=== PATIENT | female | born 1995 | race Caucasian/White ===

== ENCOUNTER → 2017-04-13 | Outpatient (REF) ==
[~2017-04-13] MED LIST: ADDERALL10 MG PO; BIRTH CONTROL PILL; NORCO 325 MG-51 TAB PO; PHENERGAN 25 TA25 MG PO; PREDNISONE20 MG PO; ULTRACET TABL1 UDTAB PO; ZOFRAN8 MG PO; ZOLOFT 100MG100 MG PO
== END ==
LOC: WSOH 15:07
DX: Z02.89 Encounter for other administrative examinations (principal)

== ENCOUNTER 2018-08-30 15:57 | Emergency (ER) | payer OTHER ==
[~2018-08-30] VITALS: Ht 177.8 cm; Wt 75.0 kg
[2018-08-30 16:04] VITALS: BP 131/81; TEMP 98.9
[2018-08-30 16:18] LABS: COLLECTION METHOD CLEAN CATCH
[2018-08-30 16:26] LABS: MUCOUS Present /lpf; PH 6 (5-8); SQUAMOUS EPITHELIAL 0-2 /hpf; URINE APPEARANCE Clear; URINE BACTERIA Rare /hpf; URINE BILIRUBIN Negative (NEGATIVE); URINE BLOOD 3+ (NEGATIVE); URINE COLOR Yellow; URINE GLUCOSE Negative (NEGATIVE); URINE KETONE Negative (NEGATIVE); URINE LEUKOCYTE ESTERASE 2+ (NEGATIVE); URINE NITRATE Negative (NEGATIVE); URINE PROTEIN(semi-quant) 1+ (NEGATIVE); URINE RBC >50 /hpf; URINE UROBILINOGEN Negative (NEGATIVE)
[2018-08-30] MEDS ORDERED: NORCO 325 MG-51 TAB PO (16:44)
[2018-08-30] MEDS ORDERED: CEFTIN500 MG PO (16:44)
[2018-08-30 17:37] VITALS: PULSE 60
[2018-09-02] MEDS ORDERED: MACROBID 1100 MG/CAP PO (08:07)
== END 2018-08-30 17:38 | disposition home or self-care (01) ==
LOC: COL.ER 15:57
PROVIDERS: Emergency Medicine
DX: N12 Tubulo-interstitial nephritis, not specified as acute or chronic (principal); N39.0 Urinary tract infection, site not specified